=== PATIENT | female | born 1955 | race Caucasian/White ===

== ENCOUNTER 2020-10-28 21:39 | Inpatient (IN) | payer OTHER ==
[~2020-10-28] VITALS: Ht 157.5 cm; Wt 63.8 kg
[2020-10-28 22:11] LABS: HEMOGLOBIN 15.5 gm/dl (12.3-15.3); RED BLOOD COUNT 5.66 M/UL (4.00-5.10); WHITE BLOOD COUNT 13.4 K/UL (4.5-11.0)
[2020-10-28] MEDS ORDERED: PAIN RELIEF325 MG PO (23:24)
[2020-10-28] MEDS ORDERED: VITAMIN C500 MG PO (23:25)
[2020-10-28] MEDS ORDERED: ASPIRIN CHEWABL81 MG PO (23:26)
[2020-10-28] MEDS ORDERED: OMNICEF 300 MG300 MG PO (23:29)
[2020-10-28] MEDS ORDERED: DOCU LIQUI50 MG/5 ML PO (23:32)
[2020-10-28] MEDS ORDERED: PROSCAR 5 MG TAB5 MG PO (23:33)
[2020-10-28] MEDS ORDERED: IPRAT-ALBUT 0.5-3 ML INH (23:34)
[2020-10-28] MEDS ORDERED: LEVOTHYROXINE100 MC2 PO (23:35)
[2020-10-28] MEDS ORDERED: MYCOSTATIN CREA15 GM TOP (23:36)
[2020-10-28] MEDS ORDERED: TOPROL XL25 MG PO (23:36)
[2020-10-28] MEDS ORDERED: CRESTOR20 MG PO (23:37)
[2020-10-28] MEDS ORDERED: PROTONIX40 MG PO (23:37)
[2020-10-28] MEDS ORDERED: B-1100 MG PO (23:38)
[2020-10-28] MEDS ORDERED: XARELTO 10 MG T10 MG PO (23:40)
[2020-10-28] MEDS ORDERED: ZINC SULFATE220 M1 PO (23:42)
[2020-10-28] MEDS ORDERED: ZOFRAN4 MG PO (23:42)
[2020-10-29] MEDS ORDERED: WELLBUTRIN SR150 MG PO (23:28)
[2020-10-30 04:43] LABS: HEMOGLOBIN 10.7 gm/dl (12.3-15.3); WHITE BLOOD COUNT 8.6 K/UL (4.5-11.0)
[2020-10-31 04:03] LABS: BUN/CREATININE RATIO 24 (0-10)
[2020-11-01 03:41] LABS: RED BLOOD COUNT 4.05 M/UL (4.00-5.10); WHITE BLOOD COUNT 8.1 K/UL (4.5-11.0)
[2020-11-01 04:11] LABS: BUN/CREATININE RATIO 18 (0-10)
[2020-11-02 04:06] LABS: HEMOGLOBIN 11.1 gm/dl (12.3-15.3); RED BLOOD COUNT 4.03 M/UL (4.00-5.10)
[2020-11-02 04:30] LABS: BUN/CREATININE RATIO 13 (0-10)
[2020-11-03 04:32] LABS: HEMOGLOBIN 11.2 gm/dl (12.3-15.3); RED BLOOD COUNT 4.11 M/UL (4.00-5.10); WHITE BLOOD COUNT 8.4 K/UL (4.5-11.0)
[2020-11-03 04:58] LABS: BUN/CREATININE RATIO 10 (0-10)
[2020-11-03] MEDS ORDERED: METFORMIN HCL500 MG PO (11:16)
== END 2020-11-03 17:25 | DRG 682 ==
LOC: ER1 21:39 → CCU 23:58 → M/S 23:58 → CDU 23:58 → 2 EAST 23:58 → CCU 10-30 11:40 → M/S 10-31 10:49
PROVIDERS: Emergency Medicine; Family Medicine; Internal Medicine Infectious Disease; ADMIT Internal Medicine
PROC: B24BZZZ Ultrasonography of Heart with Aorta (ICD-10-PCS; principal; 2020-11-02)
DX: N17.9 Acute kidney failure, unspecified (principal); G93.41 Metabolic encephalopathy; U07.1 COVID-19; E87.0 Hyperosmolality and hypernatremia; F32.2 Major depressive disorder, single episode, severe without psychotic features; E87.2 Acidosis; F03.90 Unspecified dementia, unspecified severity, without behavioral disturbance, psychotic disturbance, mood disturbance, and anxiety; I25.10 Atherosclerotic heart disease of native coronary artery without angina pectoris; Z86.19 Personal history of other infectious and parasitic diseases; N18.30 Chronic kidney disease, stage 3 unspecified; E03.9 Hypothyroidism, unspecified; E11.9 Type 2 diabetes mellitus without complications; I12.9 Hypertensive chronic kidney disease with stage 1 through stage 4 chronic kidney disease, or unspecified chronic kidney disease; E11.22 Type 2 diabetes mellitus with diabetic chronic kidney disease; F41.9 Anxiety disorder, unspecified; E78.5 Hyperlipidemia, unspecified; K21.9 Gastro-esophageal reflux disease without esophagitis; Z88.1 Allergy status to other antibiotic agents; Z88.5 Allergy status to narcotic agent; Z79.82 Long term (current) use of aspirin; Z79.899 Other long term (current) drug therapy; Z79.01 Long term (current) use of anticoagulants; E86.0 Dehydration; R13.12 Dysphagia, oropharyngeal phase; E87.6 Hypokalemia; R07.9 Chest pain, unspecified; J44.9 Chronic obstructive pulmonary disease, unspecified; I95.9 Hypotension, unspecified; D64.9 Anemia, unspecified; D69.6 Thrombocytopenia, unspecified
CPT/HCPCS: ECHO; 36415; 36600; 51702; 70450; 71045; 80048; 80053; 81001; 82550; 82553; 82607; 82803; 83036; 83690; 83735; 83874; 83930; 84439; 84443; 84484; 84550; 85025; 85610; 85730; 86140; 93005; 93306; 94760; 97110-GP-CQ; 97162; 97166; 97530-GP-CQ; 99285; A6212; J1644; J3480; U0002